=== PATIENT | male | born 1985 | race American Indian/Alaskan Native ===

== ENCOUNTER 2018-09-13 13:45 | Emergency (ER) | payer OTHER ==
[2018-09-13 14:13] VITALS: BP 123/82
--- NOTE | 2018-09-13 14:20 | Emergency Department Report ---
Ju Doc - Documentation Documentation: 32 y o male with PMH of anxiety x 10 years ago presents to Ed with panic attack while driving to [place] to his sister's house states feels like heart pouding out of chest, denies pain states sleep pattern is off recently ekg/ cxr [facility] eval
--- NOTE | 2018-09-13 15:15 | XRay Report ---
CHEST 2 VIEWS 1450 INDICATION / CLINICAL INFORMATION: Anxiety. COMPARISON: None available. FINDINGS: SUPPORT DEVICES: None. HEART / MEDIASTINUM: No significant abnormality. LUNGS / PLEURA: No significant pulmonary or pleural abnormality. No pneumothorax. ADDITIONAL FINDINGS: No significant additional findings. IMPRESSION: No significant acute abnormality Signer Name: Taiwo Ellsworth MD Signed: 09/13/2018 3:10 PM Workstation Name: [id number]
--- NOTE | 2018-09-13 15:45 | Emergency Department Report ---
ED General Adult HPI - General Chief complaint: Anxiety Stated complaint: PANIC ATTACK Time Seen by Provider: 09/13/18 14:13 Source: patient Mode of arrival: Ambulatory Limitations: No Limitations - History of Present Illness Initial comments: Patient is a 32-year-old male who states he's felt very anxious with a racing heart and shortness of breath for the last several days. Patient believes is having a panic attack. Patient states he has no large life stressors. He denies homicidal suicidal ideations. Consistency: intermittent Improves with: none Worsens with: none - Related Data Previous Rx's Medication Instructions Recorded Last Taken Type hydrOXYzine PAMOATE [Vistaril] 25 mg PO Q6HR PRN #14 capsule 09/13/18 Unknown Rx Allergies Allergy/AdvReac Type Severity Reaction Status Date / Time No Known Allergies Allergy Unverified 09/13/18 13:52 ED Review of Systems ROS: Stated complaint: PANIC ATTACK Other details as noted in HPI Comment: All other systems reviewed and negative ED Past Medical Hx - Past Medical History Previous Medical History?: Yes Hx Psychiatric Treatment: Yes (anxiety) - Surgical History Past Surgical History?: No - Social History Smoking Status: Never Smoker Substance Use Type: None - Medications Home Medications: Home Medications Medication Instructions Recorded Confirmed Last Taken Type hydrOXYzine PAMOATE [Vistaril] 25 mg PO Q6HR PRN #14 capsule 09/13/18 Unknown Rx ED Physical Exam - General Limitations: No Limitations General appearance: alert, in no apparent distress - Head Head exam: Present: atraumatic, normocephalic - Eye Eye exam: Present: normal appearance - ENT ENT exam: Present: mucous membranes moist - Neck Neck exam: Present: normal inspection - Respiratory Respiratory exam: Present: normal lung sounds bilaterally. Absent: respiratory distress, wheezes, rales, rhonchi - Cardiovascular Cardiovascular Exam: Present: regular rate, normal rhythm. Absent: systolic murmur, diastolic murmur, rubs, gallop - GI/Abdominal GI/Abdominal exam: Present: soft, normal bowel sounds - Rectal Rectal exam: Present: deferred - Extremities Exam Extremities exam: Present: normal inspection - Back Exam Back exam: Present: normal inspection - Neurological Exam Neurological exam: Present: alert, oriented X3 - Psychiatric Psychiatric exam: Present: normal affect, normal mood - Skin Skin exam: Present: warm, dry, intact, normal color. Absent: rash ED Course Vital Signs 09/13/18 14:12 Temperature 98.2 F Pulse Rate 104 H Respiratory 15 Rate Blood Pressure 123/82 O2 Sat by Pulse 96 Oximetry ED Medical Decision Making - EKG Data -: EKG Interpreted by Me EKG shows normal: sinus rhythm, axis, intervals, QRS complexes, ST-T waves Rate: normal - EKG Data Interpretation: normal EKG Critical care attestation.: If time is entered above; I have spent that time in minutes in the direct care of this critically ill patient, excluding procedure time. ED Disposition Clinical Impression: Anxiety reaction Disposition: DC-01 TO HOME OR SELFCARE Is pt being admited?: No Does the pt Need Aspirin: No Condition: Stable Instructions: Generalized Anxiety Disorder (ED) Prescriptions: hydrOXYzine PAMOATE [Vistaril] 25 mg PO Q6HR PRN #14 capsule PRN Reason: Anxiety Referrals: NICOLE COBOS MD [Primary Care Provider] - 3-5 Days Time of Disposition: 15:45
== END 2018-09-13 15:51 | disposition home or self-care (01) ==
LOC: ED 13:45
DX: F41.9 Anxiety disorder, unspecified (principal)
CPT/HCPCS: 71046; 93005; 93010

== ENCOUNTER 2018-10-02 21:00 | Emergency (ER) | payer SELFPAY ==
[2018-10-02 21:07] VITALS: BP 117/79
--- NOTE | 2018-10-02 21:09 | Emergency Department Report ---
Blank Doc - Documentation Documentation: This is a 32-year-old male that presents wit anxiety. Denies any SI/HI. This initial assessment/diagnostic orders/clinical plan/treatment(s) is/are subject to change based on patient's health status, clinical progression and re- assessment by fellow clinical providers in the ED. Further treatment and workup at subsequent clinical providers discretion. Patient/guardians urged not to elope from the ED as their condition may be serious if not clinically assessed and managed. Initial orders include: 1- Patient sent to [facility] for further evaluation and treatment
--- NOTE | 2018-10-02 23:48 | Emergency Department Report ---
ED Anxiety HPI - General Chief Complaint: Anxiety Stated Complaint: PANIC ATTACK Time Seen by Provider: 10/02/18 21:08 Source: patient Mode of arrival: Ambulatory - History of Present Illness Initial Comments: 32-year-old [place] male with a history of anxiety, which is been trying to treat with Vistaril since emerge department complaining of another exacerbation. Eyes been seen here previously for the similar symptoms and was advised to follow-up with mental health, but has not yet done so does plan to see this upcoming week. He states that he had an onset of heart fluttering sensation outside coming in sweaty and worrying for unknown reasons. Reports no headache or presyncope. No no no blurry vision. He tried to take Vistaril, but did not resolve the symptoms MD Complaint: anxiety Previous History of Same: No Severity: mild Provoking factors: none known Improves With: nothing Worsens With: thinking about event Associated symptoms: palpitations, malaise, other (has muscle soreness). denies: diaphoresis, fever/chills, headaches, anorexia, seizure, syncope, weakness - Related Data Home Medications: Previous Rx's Medication Instructions Recorded Last Taken Type hydrOXYzine PAMOATE [Vistaril] 25 mg PO Q6HR PRN #14 capsule 09/13/18 Unknown Rx ALPRAZolam [Xanax TAB] 0.25 mg PO BID PRN #8 tab 10/02/18 Unknown Rx Allergies/Adverse Reactions: Allergies Allergy/AdvReac Type Severity Reaction Status Date / Time No Known Allergies Allergy Unverified 09/13/18 13:52 ED Review of Systems ROS: Stated complaint: PANIC ATTACK Other details as noted in HPI Comment: All other systems reviewed and negative ED Past Medical Hx - Past Medical History Previous Medical History?: Yes Hx Psychiatric Treatment: Yes (anxiety, Panic Attack) - Surgical History Past Surgical History?: No - Social History Smoking Status: Never Smoker Substance Use Type: None - Medications Home Medications: Home Medications Medication Instructions Recorded Confirmed Last Taken Type hydrOXYzine PAMOATE [Vistaril] 25 mg PO Q6HR PRN #14 capsule 09/13/18 Unknown Rx ALPRAZolam [Xanax TAB] 0.25 mg PO BID PRN #8 tab 10/02/18 Unknown Rx ED Physical Exam - General Limitations: No Limitations General appearance: alert, in no apparent distress - Head Head exam: Present: atraumatic, normocephalic - Eye Eye exam: Present: normal appearance - ENT ENT exam: Present: mucous membranes moist - Neck Neck exam: Present: normal inspection - Respiratory Respiratory exam: Present: normal lung sounds bilaterally. Absent: respiratory distress - Cardiovascular Cardiovascular Exam: Present: regular rate, normal rhythm. Absent: systolic murmur, diastolic murmur, rubs, gallop - GI/Abdominal GI/Abdominal exam: Present: soft, normal bowel sounds - Rectal Rectal exam: Present: deferred - Extremities Exam Extremities exam: Present: normal inspection - Back Exam Back exam: Present: normal inspection - Neurological Exam Neurological exam: Present: alert, oriented X3 - Psychiatric Psychiatric exam: Present: normal affect, normal mood, other (does not appear anxious at this time of examination.). Absent: depressed, agitated, homicidal ideation, suicidal ideation - Skin Skin exam: Present: warm, dry, intact, normal color. Absent: rash ED Course Vital Signs 10/02/18 10/02/18 21:03 21:09 Temperature 97.7 F 97.8 F Pulse Rate 82 79 Respiratory 18 18 Rate Blood Pressure 117/79 117/79 O2 Sat by Pulse 100 100 Oximetry Critical care attestation.: If time is entered above; I have spent that time in minutes in the direct care of this critically ill patient, excluding procedure time. ED Disposition Clinical Impression: Anxiety Disposition: DC-01 TO HOME OR SELFCARE Is pt being admited?: No Does the pt Need Aspirin: No Condition: Stable Instructions: Separation Anxiety Disorder (ED), Generalized Anxiety Disorder (ED), Social Anxiety Disorder (ED), Anxiety (ED) Referrals: [facility] MD ROBERT [Primary Care Provider] - 3-5 Days SHIVANI BAEZ NP [Advanced Practice Nurse] - 3-5 Days IRA ANGEL MD [Referring] - 3-5 Days CARLA PINEDA MD [Staff Physician] - 3-5 Days
== END 2018-10-03 00:05 | disposition home or self-care (01) ==
LOC: ED 21:00
DX: F41.0 Panic disorder [episodic paroxysmal anxiety] (principal); Z79.899 Other long term (current) drug therapy
CPT/HCPCS: 99282